=== PATIENT | male | born 1960 | race Caucasian/White ===

== ENCOUNTER → 2023-08-11 | Emergency (ER) | payer SELFPAY ==
[~2023-08-11] MED LIST: ALBUTEROL 2.5 MG/3 ML NEB SOL ONE; DIPHENHYDRAMINE 50 MG/ML VIAL ONE; IBUPROFEN 400 MG TAB ONE; IPRATROPIUM BROM 0.5MG/2.5ML ONE; Levofloxacin 750mg IV 750 MG/150 ML BAG IV ONE; METHYLPREDNISOLONE 125 MG INJ ONE; NA CHLORIDE 0.9% 1,000 ML ONE
[2023-08-11 18:05] LABS: Absolute Lymphocytes (CBC) 0.8 K/uL (0.7-4.9); Lymphocytes % 6.9 % (15.3-44.8); MCV 84.2 fL (80-100); MPV 7.3 fL (7.6-11.3); Platelets 272 thou/uL (152-406); RBC Red Blood Cell Count 4.88 M/uL (4.33-5.43)
[2023-08-11 18:07] LABS: Protime INR 1.22
[2023-08-11 18:13] LABS: Albumin 3.4 g/dL (3.4-5.0); Bilirubin Total 0.6 mg/dL (0.2-1.0); Potassium 3.3 mEq/L (3.5-5.1); Protein, Total 7.6 g/dL (6.4-8.2)
[2023-08-11 18:14] LABS: Troponin High Sensitivity 6.4 pg/mL (<58.9)
--- NOTE | 2023-08-11 18:57 | RAD REPORT ---
EXAM DESCRIPTION: Jose Single View08/11/2023 6:13 pm CLINICAL HISTORY: cough COMPARISON: none FINDINGS: Mild bilateral reticulonodular opacities within the lungs Heart is normal size IMPRESSION: Mild bilateral reticulonodular opacities within the lungs may indicate an atypical infec tion or viral pneumonitis
[2023-08-11 19:29] LABS: Specific Gravity 1.015 (1.005-1.030); Urine Bacteria None Seen /HPF (<20); Urine Bilirubin NEGATIVE (Negative); Urine Blood Trace (Negative); Urine Clarity Clear (Clear); Urine Color Yellow (Yellow); Urine Glucose NEGATIVE (Negative); Urine Mucus Slight /HPF (None Seen); Urine Protein TRACE (Negative); Urine RBC <5 /HPF (None Seen); Urine Urobilinogen 2+ (Normal); Urine pH 6.5 (5.0-7.0)
--- NOTE | 2023-08-11 20:30 | RAD REPORT ---
EXAM DESCRIPTION: CT - Chest For Pe Angio - 08/11/2023 7:42 pm CLINICAL HISTORY: sob COMPARISON: None. TECHNIQUE: Dynamically enhanced axial 3 mm thick images of the chest were obtained during administra tion of 100 mL Isovue 370 IV contrast. Coronal and oblique reconstruction images were generated and r eviewed. Exam utilizes a protocol for optimal evaluation of pulmonary arterial tree. Maximum intensity projections 3D imaging was utilized All CT scans are performed using dose optimization technique as appropriate and may include automated exposure control or mA/KV adjustment according to patient size. FINDINGS: A pulmonary embolus is not seen. A thoracic aortic aneurysm is not noted. A pleural effusion is not seen. A pericardial effusion is not seen. Moderate tree-in-bud opacities within predominantly the right middle and lower lobes bilaterally IMPRESSION: Negative for a pulmonary embolism. Moderate tree-in-bud opacities within predominantly the right middle and lower lobes bilaterally may indicate an atypical pneumonia or viral pneumonitis
--- NOTE | 2023-08-11 21:22 | EDPHYS ---
Physician Documentation [facility] Name: Jaden Krishnan Age: 63 yrs Sex: Male : 1960 Arrival Date: 08/11/2023 Time: 16:50 Bed 14 Private MD: ED Physician Wayne Baires HPI: 08/11 17:25 This 63 yrs old Male presents to ER via Ambulatory with complaints of Congestion. cp 17:25 The patient or guardian reports cough, that is intermittent, with productive sputum, cp that is white. Onset: The symptoms/episode began/occurred this past Tuesday. 17:25 Associated signs and symptoms: Pertinent positives: chest pain, with cough, Pertinent cp negatives: diarrhea, fever, vomiting. Severity of symptoms: in the emergency department the symptoms are unchanged despite home interventions. Historical: - Allergies: 17:11 No Known Allergies; cm10 - Home Meds: 17:11 None [Active]; cm10 - PMHx: 17:11 None; cm10 - PSHx: 17:11 Tonsillectomy; cm10 - Immunization history:: Adult Immunizations up to date. - Social history:: Smoking status: Patient reports the use of cigarette tobacco products, smokes one pack cigarettes per day. ROS: 17:30 Constitutional: Negative for fever, poor PO intake, cp 17:30 Eyes: Negative for injury, pain, redness, and discharge, cp 17:30 ENT: Negative for drainage from ear(s), ear pain, difficulty swallowing, difficulty handling secretions, 17:30 Cardiovascular: Positive for chest pain, with cough, 17:30 Respiratory: Positive for cough, with white sputum, shortness of breath, wheezing, 17:30 Abdomen/GI: Negative for abdominal pain, vomiting, diarrhea, constipation, 17:30 : Negative for urinary symptoms, 17:30 Neuro: Negative for altered mental status, headache, syncope, weakness, 17:30 All other systems are negative, Exam: 17:33 ECG was reviewed by the Attending Physician. cp 17:35 Constitutional: The patient appears in no acute distress, alert, awake, cp non-diaphoretic, non-toxic, well developed, well nourished, 17:35 Head/Face: Normocephalic, atraumatic. cp 17:35 Eyes: Periorbital structures: appear normal, Conjunctiva: normal, no exudate, no injection, Sclera: no appreciated abnormality, Lids and lashes: appear normal, bilaterally, 17:35 ENT: External ear(s): are unremarkable, Nose: is normal, Mouth: Lips: moist, Oral mucosa: moist, Posterior pharynx: Airway: no evidence of obstruction, patent, Tonsils: no enlargement, no exudate, swelling, is not appreciated, erythema, that is mild, exudate, is not appreciated, 17:35 Neck: ROM/movement: is normal, is supple, without pain, no range of motions limitations, no meningismus, 17:35 Chest/axilla: Inspection: normal, Palpation: is normal, no crepitus, no tenderness, 17:35 Cardiovascular: Rate: tachycardic, Rhythm: regular, Edema: is not appreciated, JVD: is not appreciated, 17:35 Respiratory: the patient does not display signs of respiratory distress, Respirations: labored breathing, that is mild, Breath sounds: decreased breath sounds, that are mild, throughout, stridor, is not appreciated, wheezing: that is mild, is heard diffusely, 17:35 Abdomen/GI: Inspection: abdomen appears normal, Palpation: abdomen is soft and non-tender, in all quadrants, 17:35 Back: ROM is normal, cp 17:35 Skin: no rash present. 17:35 Neuro: Orientation: to person, place \T\ time. Mentation: is normal, Motor: moves all fours, strength is normal, Sensation: is normal, Vital Signs: 17:10 BP 133 / 90; Pulse 114; Resp 16; Temp 100.5(O); Pulse Ox 93% on R/A; Weight 77.11 kg; cm10 Height 5 ft. 8 in. ; Pain 2/10; 17:45 BP 127 / 84; Pulse 101; Resp 25; Temp 98(O); me1 18:23 Temp 99.4(O); me1 18:45 BP 133 / 88; Pulse 98; Resp 28; Pulse Ox 94% on R/A; me1 19:39 BP 147 / 95; Pulse 98; Resp 24; Pulse Ox 94% on R/A; me1 20:30 BP 118 / 87; Pulse 96; Resp 26; Pulse Ox 96% on R/A; me1 21:00 BP 126 / 87; Pulse 92; Resp 25; Pulse Ox 91% on R/A; me1 21:49 BP 126 / 89; Pulse 94; Resp 25; Pulse Ox 93% on R/A; me1 17:10 Body Mass Index 25.85 (77.11 kg, 172.72 cm) cm10 17:10 Pain Scale: Adult cm10 MDM: 17:09 Patient medically screened. cp 21:20 Data reviewed: vital signs, nurses notes, lab test result(s), EKG, radiologic studies, cp CT scan, plain films. 21:20 Differential diagnosis: bronchitis, flu, URI, pneumonia, sepsis, pulmonary embolism. I cp considered the following discharge prescriptions or medication management in the emergency department Medications were administered in the Emergency Department. See MAR. Independent interpretation of the following test(s) in the Emergency Department EKG: See my EKG interpretation above. Counseling: I had a detailed discussion with the patient and/or guardian regarding the historical points, exam findings, and any diagnostic results supporting the discharge/admit diagnosis, lab results, radiology results, the need for outpatient follow up, a family practitioner, to return to the emergency department if symptoms worsen or persist or if there are any questions or concerns that arise at home. Response to treatment: the patient's symptoms have markedly improved after treatment, and as a result, I will discharge patient. 08/11 17:16 Order name: COVID-19 SARS RT PCR; Complete Time: 19: 08/11 17:16 Order name: Influenza Screen (a \T\ B); Complete Time: 19: 08/11 17:16 Order name: CBC with Diff; Complete Time: 19: 08/11 17:16 Order name: CMP; Complete Time: 19: 08/11 17:16 Order name: Lactate w/ 2H reflex if indic.; Complete Time: 19: 08/11 17:16 Order name: Protime (+inr); Complete Time: 19: 08/11 17:16 Order name: Ptt, Activated; Complete Time: 19: 08/11 17:16 Order name: Urinalysis w/ reflexes; Complete Time: 20:22 08/11 20:22 Interpretation: Normal except: UKET 1+; UBLD Trace; UPROT TRACE; UUROB 2+. 08/11 17:16 Order name: Troponin High Sensitivity; Complete Time: 19:07 cp 08/11 17:16 Order name: Blood Culture Adult (2) cp 08/11 19:10 Order name: D-Dimer; Complete Time: 20:22 cp 08/11 20:23 Interpretation: D-DIMER 334; Reviewed. 08/11 19:11 Order name: LAB Add On 08/11 17:16 Order name: Chest Single View XRAY; Complete Time: 19:07 08/11 19:08 Interpretation: Report reviewed. 08/11 19:10 Order name: CT Chest For PE Angio; Complete Time: 21:09 cp 08/11 21:10 Interpretation: Report reviewed. 08/11 17:16 Order name: EKG; Complete Time: 17:17 cp 08/11 17:16 Order name: Accucheck; Complete Time: 19:39 cp 08/11 17:16 Order name: Cardiac monitoring; Complete Time: 19:39 cp 08/11 17:16 Order name: EKG - Nurse/Tech; Complete Time: 17:42 cp 08/11 17:16 Order name: IV Saline Lock - Large Bore; Complete Time: 19:39 cp 08/11 17:16 Order name: Labs collected and sent; Complete Time: 19:39 cp 08/11 17:16 Order name: O2 Per Protocol; Complete Time: 19:39 cp 08/11 17:16 Order name: O2 Sat Monitoring; Complete Time: 19:40 cp 08/11 17:16 Order name: Vital Signs; Complete Time: 19:40 cp EC:33 Rate is 107 beats/min. Rhythm is regular. CT interval is normal. QRS interval is cp normal. QT interval is normal. Interpreted by me. Reviewed by me. Administered Medications: 17:26 Drug: DuoNeb Nebulize (2.5 mg - 0.5 mg) 3 ml Nebulizer once Route: Nebulizer; me1 18:20 Follow up: Response: No adverse reaction; Wheezing diminished me1 17:27 Drug: Ibuprofen PO 800 mg PO once Route: PO; me1 18:20 Follow up: Response: No adverse reaction; Temperature is decreased me1 17:30 Drug: NS 0.9% IV 1000 ml IV at 1 bolus Per protocol; 1000 mL bolus Route: IV; Rate: 1 me1 bolus; Site: right antecubital; 19:40 Follow up: IV Status: Completed infusion; IV Intake: 1000ml me1 17:30 Drug: MethylPrednisoLONE IVP 125 mg IVP once Route: IVP; Site: right antecubital; me1 18:20 Follow up: Response: No adverse reaction me1 19:26 Drug: levofloxacin IVPB 750 mg 150 ml IVPB once over 90 mins Volume: 150 ml; Route: me1 IVPB; Infused Over: 90 mins; Site: left forearm; 21:52 Follow up: IV Status: Completed infusion me1 20:23 Drug: diphenhydrAMINE IVP 25 mg IVP once Route: IVP; Site: left forearm; me1 21:17 Follow up: Response: No adverse reaction me1 Disposition Summary: 08/11/23 21:21 Discharge Ordered Notes: Location: Home cp Problem: new cp Symptoms: have improved cp Condition: Stable cp Diagnosis - Pneumonia in diseases classified elsewhere cp Followup: cp - With: Private Physician - When: 5 - 6 days - Reason: Recheck today's complaints Discharge Instructions: - Discharge Summary Sheet cp - Community-Acquired Pneumonia, Adult cp Forms: - Medication Reconciliation Form cp - Thank You Letter cp - Antibiotic Education cp - Prescription Opioid Use cp - Patient Portal Instructions cp - Leadership Thank You Letter cp - Work release form me1 Prescriptions: - Bromfed DM 2-30-10 mg/5 mL Oral syrup - administer 10 milliliter ORAL route every 6 hours as needed for cold symptoms; cp 240 milliliter; Refills: 0, Product Selection Permitted - NEBULIZER MACHINE - nebulize 1 ampule NEBULIZATION route every 4-6 hours As needed; 1 unit; cp Refills: 0, Product Selection Permitted - Albuterol Sulfate 2.5 mg /3 mL (0.083 %) Inhalation Solution for Nebulization - inhale 1 unit NEBULIZATION route every 8 hours As needed; 1 unit; Refills: 0, cp Product Selection Permitted - Prednisone 20 mg Oral Tablet - take 2 tablets ORAL route once daily for 5 days; 10 tablet; Refills: 0, Product cp Selection Permitted - levofloxacin 500 mg Oral tablet - take 1 tablet ORAL route once daily for 7 days; 7 tablet; Refills: 0, Product cp Selection Permitted Addendum: 08/14/2023 18:57 Co-signature as Attending Physician, Wayne Baires MD I reviewed the patient's care r n provided by the Advanced Practice Provider and agree with the diagnosis and treatment plan. Signatures: Dispatcher [employer] Wayne Ha MD MD rn Page, Corey, PA PA cp Martinez, Clarissa, RN RN cm10 Gloria Roper RN RN me1 Corrections: (The following items were deleted from the chart) 08/11 17:12 17:11 PMHx: Unable to Obtain; cm10 cm10
--- NOTE | 2023-08-11 21:22 | ER ---
Nurse's Notes [facility] Name: Jaden Krishnan Age: 63 yrs Sex: Male : 1960 Arrival Date: 08/11/2023 Time: 16:50 Bed 14 Private MD: Diagnosis: Pneumonia in diseases classified elsewhere Presentation: 08/11 17:10 Chief complaint: Patient states: Cough, congestion and shortness of breath onset cm10 Tuesday. Pt reports that he is having chest pain with cough. Coronavirus screen: Vaccine status: Patient reports receiving the 2nd dose of the covid vaccine. Client denies travel out of the [place] in the last 14 days. Ebola Screen: Patient denies travel to an Ebola-affected area in the 21 days before illness onset. No symptoms or risks identified at this time. Initial Sepsis Screen: Does the patient meet any 2 criteria? HR > 90 bpm. Does the patient have a suspected source of infection? No. Patient's initial sepsis screen is negative. Risk Assessment: Do you want to hurt yourself or someone else? Patient reports no desire to harm self or others. Onset of symptoms was August 11, 2023. 17:10 Method Of Arrival: Ambulatory cm10 17:10 Acuity: TRISTON 3 cm10 Triage Assessment: 21:50 Respiratory: Breath sounds with crackles bilaterally. me1 Historical: - Allergies: 17:11 No Known Allergies; cm10 - Home Meds: 17:11 None [Active]; cm10 - PMHx: 17:11 None; cm10 - PSHx: 17:11 Tonsillectomy; cm10 - Immunization history:: Adult Immunizations up to date. - Social history:: Smoking status: Patient reports the use of cigarette tobacco products, smokes one pack cigarettes per day. Screenin:16 [facility] ED Fall Risk Assessment (Adult) History of falling in the last 3 months, me1 including since admission No falls in past 3 months (0 pts) Confusion or Disorientation No (0 pts) Intoxicated or Sedated No (0 pts) Impaired Gait No (0 pts) Mobility Assist Device Used No (0 pt) Altered Elimination No (0 pt) Score/Fall Risk Level 0 - 2 = Low Risk Maintained a safe environment, Provided non-skid footwear, Hourly rounding (assess needs \T\ fall precautionary measures) done. Abuse screen: Denies threats or abuse. Nutritional screening: No deficits noted. Tuberculosis screening: No symptoms or risk factors identified. Assessment: 17:16 General: Appears uncomfortable, ill, well groomed, well developed, well nourished, me1 Behavior is calm, cooperative, appropriate for age, Reports Sore throat, Cough, congestion and shortness of breath onset Tuesday. Pt reports that he is having chest pain with cough. Pain: Complains of pain in generalized Pain does not radiate. Pain currently is 6 out of 10 on a pain scale. Quality of pain is described as aching, Pain began 2-3 days ago. Is intermittent. Neuro: Level of Consciousness is awake, alert, obeys commands, Oriented to person, place, time, situation, Appropriate for age. Cardiovascular: Capillary refill < 3 seconds Patient's skin is warm and dry. Respiratory: Airway is patent Respiratory effort is even, labored, Respiratory pattern is regular, symmetrical, tachypnea. Respiratory: Reports cough that is productive, pain with cough since Tuesday. EENT: Reports pain in throat. Vital Signs: 17:10 BP 133 / 90; Pulse 114; Resp 16; Temp 100.5(O); Pulse Ox 93% on R/A; Weight 77.11 kg; cm10 Height 5 ft. 8 in. ; Pain 2/10; 17:45 BP 127 / 84; Pulse 101; Resp 25; Temp 98(O); me1 18:23 Temp 99.4(O); me1 18:45 BP 133 / 88; Pulse 98; Resp 28; Pulse Ox 94% on R/A; me1 19:39 BP 147 / 95; Pulse 98; Resp 24; Pulse Ox 94% on R/A; me1 20:30 BP 118 / 87; Pulse 96; Resp 26; Pulse Ox 96% on R/A; me1 21:00 BP 126 / 87; Pulse 92; Resp 25; Pulse Ox 91% on R/A; me1 21:49 BP 126 / 89; Pulse 94; Resp 25; Pulse Ox 93% on R/A; me1 17:10 Body Mass Index 25.85 (77.11 kg, 172.72 cm) cm10 17:10 Pain Scale: Adult cm10 ED Course: 16:54 Patient arrived in ED. mg5 16:58 Diego Navarro PA is PHCP. cp 16:58 Wayne Baires MD is Attending Physician. cp 17:11 Triage completed. cm10 17:12 Arm band placed on Patient placed in an exam room, on a stretcher, on quality assurance monitor chassis, cm10 on pulse oximetry. 17:16 Gloria Roper, EMILIA is Primary Nurse. me1 17:16 Patient has correct armband on for positive identification. Bed in low position. Call me1 light in reach. Side rails up X 1. Provided Education on: POC. Verbalized understanding. . 17:16 No provider procedures requiring assistance completed. me1 18:15 Chest Single View XRAY In Process Unspecified. EDMS 18:38 Initial lab(s) drawn, by wv, sent to lab. First set of blood cultures drawn by wv, [id number] Second set of blood cultures drawn by wv. Inserted saline lock: 20 gauge 22 gauge in right in left antecubital area, using aseptic technique. forearm, using aseptic technique. 19:18 D-Dimer Sent. me1 19:18 LAB Add On Sent. me1 19:44 CT Chest For PE Angio In Process Unspecified. EDMS 21:50 IV discontinued, intact, bleeding controlled, No redness/swelling at site. Pressure me1 dressing applied. Administered Medications: 17:26 Drug: DuoNeb Nebulize (2.5 mg - 0.5 mg) 3 ml Nebulizer once Route: Nebulizer; me1 18:20 Follow up: Response: No adverse reaction; Wheezing diminished me1 17:27 Drug: Ibuprofen PO 800 mg PO once Route: PO; me1 18:20 Follow up: Response: No adverse reaction; Temperature is decreased me1 17:30 Drug: NS 0.9% IV 1000 ml IV at 1 bolus Per protocol; 1000 mL bolus Route: IV; Rate: 1 me1 bolus; Site: right antecubital; 19:40 Follow up: IV Status: Completed infusion; IV Intake: 1000ml me1 17:30 Drug: MethylPrednisoLONE IVP 125 mg IVP once Route: IVP; Site: right antecubital; me1 18:20 Follow up: Response: No adverse reaction me1 19:26 Drug: levofloxacin IVPB 750 mg 150 ml IVPB once over 90 mins Volume: 150 ml; Route: me1 IVPB; Infused Over: 90 mins; Site: left forearm; 21:52 Follow up: IV Status: Completed infusion me1 20:23 Drug: diphenhydrAMINE IVP 25 mg IVP once Route: IVP; Site: left forearm; me1 21:17 Follow up: Response: No adverse reaction me1 Medication: 17:16 VIS not applicable for this client. me1 Intake: 19:40 IV: 1000ml; Total: 1000ml. me1 Outcome: 21:21 Discharge ordered by MD. cp 21:49 Discharged to home ambulatory, me1 21:49 Condition: stable 21:49 Discharge instructions given to patient, Instructed on discharge instructions, follow up and referral plans. medication usage, Demonstrated understanding of instructions, follow-up care, medications, Prescriptions given X X5 21:51 Patient left the ED. me1 Signatures: Dispatcher [employer] EDMS Diego Navarro PA PA cp Martinez, Clarissa RN RN cm10 Gloria Roper RN RN me1 Irma Ji mg5 Dhruv Panda [id number] Corrections: (The following items were deleted from the chart) 17:12 17:11 PMHx: Unable to Obtain; cm10 cm10 17:16 17:10 Chief complaint: Patient states: Cough, congestion and shortness of breath onset me1 Tuesday. Pt reports that he is having chest pain with cough. cm10 21:49 21:48 Respiratory: Breath sounds with crackles bilaterally. me1 me1
[2023-08-12 00:39] VITALS: BP 126/89; TEMP 99.4; O2SAT 93
== END ==
LOC: ER 16:50
DX: J18.9 Pneumonia, unspecified organism (principal); F17.210 Nicotine dependence, cigarettes, uncomplicated; Z11.52 Encounter for screening for COVID-19
CPT/HCPCS: 36415; 71045; 71275; 80053; 81001; 83605; 84484; 85025; 85379; 85610; 85730; 87040; 87635; 87804; 93005; 94640; J1200; J2930; J7030; J7613; J7644; Q9967